=== PATIENT | female | born 1960 | race Caucasian/White ===

== ENCOUNTER 2023-11-04 10:21 | Emergency (ER) | payer OTHER, SELFPAY ==
[2023-11-04 10:46] VITALS: BP 127/72; PULSE 69; RESP 16; TEMP 36.8; O2SAT 99; BMI 19.1
--- NOTE | 2023-11-04 12:51 | ED_ITS ---
HPI - Animal Bite <Greyson RiversMARGOTH aden - Last Filed: 11/04/23 13:22> General Chief Complaint: Animal Bite Stated Complaint: bat bite Time Seen by Provider: 11/04/23 12:41 Source: patient Mode of arrival: Family Vehicle History of Present Illness HPI narrative: 63-year-old female, [place], presents to the emergency department with suspected bat bite to her left ankle. Patient has been staying on Tuesday [facility]. Patient endorses that she heard wing flapping in the dark bedroom over last 3 nights. Last night, she felt a stinging sensation to her left ankle, and when she turned on the lights, noticed that there was a bat flying around in the room. Patient denies any systemic symptoms at this time. Review of Systems <MARGOTH Huang - Last Filed: 11/04/23 13:22> Review of Systems Narrative: Narrative: See HPI. GENERAL: Denies chills, fatigue, fever, sweats. HEENT: Denies sinus pain, ear pain, sore throat, difficulty swallowing, dizziness. RESPIRATORY: Denies dyspnea, cough, wheezing, sputum. CARDIOVASCULAR: Denies chest pain, palpitations, edema. GASTROINTESTINAL: Denies nausea, vomiting, abdominal pain, diarrhea, constipation. : Denies dysuria, frequency, incontinence, hematuria, urinary retention, flank pain. MSK: Denies weakness, joint pain, or bony pain. SKIN: Denies rash, skin lesions, or pruritis. Endorses suspected bat bite to left ankle. NEUROLOGIC: Denies weakness, dizziness, headache, numbness, confusion. PSYCHIATRIC: No concerning psychosocial issues. Exam <MARGOTH Huang - Last Filed: 11/04/23 13:22> Narrative Exam Narrative: Exam Narrative: GENERAL: This is a well-nourished, well-developed patient, in no acute distress. HEAD: Atraumatic. Normocephalic. EYES: Pupils equal round and reactive. . No scleral icterus, injection or drainage. ENT: Nose without bleeding, purulent drainage. Throat without erythema, tonsillar hypertrophy or exudate. Uvula midline. Airway patent. TMs and canals clear. No sinus tenderness. NECK: Trachea midline. No JVD or lymphadenopathy. Nontender. CARDIOVASCULAR: Regular rate and rhythm without murmurs, peripheral pulses intact, cap refill <2 sec. RESPIRATORY: Breath sounds equal and clear bilaterally. No wheezes, rales, or rhonchi. No cough. No increased respiratory effort. No accessory muscle use. MSK: Moves all extremities. Normal range of motion, no clubbing or edema. Neurovascularly intact. NEURO: A&O x 3. SKIN: Warm, dry, no rashes or lesions noted. Suspected bat bite to left ankle with to richter approximately 0.3 cm apart. No redness, warmth, swelling, drainage or red streaking noted. Initial Vital Signs Initial Vital Signs: Vital Signs Temperature 98.3 F 11/04/23 10:46 Pulse Rate 69 11/04/23 10:46 Respiratory Rate 16 11/04/23 10:46 Blood Pressure 127/72 11/04/23 10:46 Pulse Oximetry 99 11/04/23 10:46 Oxygen Delivery Method Room Air 11/04/23 10:46 Review <Susan George DO - Last Filed: 11/13/23 07:47> Initial Vital Signs Initial Vital Signs: Vital Signs Temperature 98.3 F 11/04/23 10:46 Pulse Rate 69 11/04/23 10:46 Respiratory Rate 16 11/04/23 10:46 Blood Pressure 127/72 11/04/23 10:46 Pulse Oximetry 99 11/04/23 10:46 Oxygen Delivery Method Room Air 11/04/23 10:46 Course <MARGOTH Huang - Last Filed: 11/04/23 13:22> Orders Ordered: Discontinued Medications Rabies Immune Globulin (Rabies Immune Globulin 300 Unit/Ml 1ml Vial) 998 unit 20 unit/kg (998 unit) IM NOW ONE Stop: 11/04/23 12:51 Last Admin: 11/04/23 14:10 Dose: Not Given Documented By: ROSEMARIE Rabies Immune Globulin (Rabies Immune Globulin 300 Unit/Ml 1ml Vial) 900 unit 20 unit/kg (998 unit) IM NOW ONE Stop: 11/04/23 14:16 Last Admin: 11/04/23 14:11 Dose: 900 unit Documented By: ROSEMARIE Rabies Vaccine (Rabies Vaccine (Rabavert) 2.5 Units Syringe) 2.5 units IM .ONCE ONE Stop: 11/04/23 12:51 Last Admin: 11/04/23 13:20 Dose: 2.5 units Documented By: ROSEMARIE Vital Signs Vital signs: Vital Signs - 8 hr 11/04/23 10:46 Temperature 98.3 F Pulse Rate 69 Respiratory Rate 16 Blood Pressure 127/72 Pulse Oximetry 99 Oxygen Delivery Method Room Air <Ssuan George DO - Last Filed: 11/13/23 07:47> Orders Ordered: Discontinued Medications Rabies Immune Globulin (Rabies Immune Globulin 300 Unit/Ml 1ml Vial) 998 unit 20 unit/kg (998 unit) IM NOW ONE Stop: 11/04/23 12:51 Last Admin: 11/04/23 14:10 Dose: Not Given Documented By: ROSEMARIE Rabies Immune Globulin (Rabies Immune Globulin 300 Unit/Ml 1ml Vial) 900 unit 20 unit/kg (998 unit) IM NOW ONE Stop: 11/04/23 14:16 Last Admin: 11/04/23 14:11 Dose: 900 unit Documented By: ROSEMARIE Rabies Vaccine (Rabies Vaccine (Rabavert) 2.5 Units Syringe) 2.5 units IM .ONCE ONE Stop: 11/04/23 12:51 Last Admin: 11/04/23 13:20 Dose: 2.5 units Documented By: ROSEMARIE Vital Signs Vital signs: Vital Signs - 8 hr 11/04/23 10:46 Temperature 98.3 F Pulse Rate 69 Respiratory Rate 16 Blood Pressure 127/72 Pulse Oximetry 99 Oxygen Delivery Method Room Air MDM - Animal Bite <MARGOTH Huang - Last Filed: 11/04/23 13:22> Differential Diagnosis Differential diagnosis: Likely bite by animal and rabies contact MDM Narrative Medical decision making narrative: 63-year-old female with suspected bat bite. Assessment was encouraging but history is consistent with suspected bat bite and exposure to rabies. Will begin treatment with RIG and day 1 rabies vaccine. RIG 900 IU infiltrated around suspected wound. Will instruct patient to return to the emergency department or follow up with her family doctor in [place] for rabies vaccination on Days 3, 7 and between days 14 and 28. Discussed plan of care and return precautions with patient, who verbalized understanding and was agreeable with course of action. Discharge Plan Departure Patient Disposition: Home Clinical Impression: Bite by animal, Rabies contact Instructions: DI for Animal Bites Activity Restrictions/Additional Instructions: *You have been diagnosed with a suspected bat bite to your ankle. We have administered rabies immune globulin to the affected site and 1st dose of rabies vaccine (Day 0). You need to return to the emergency department or your family doctor for rabies vaccination on Days 3, 7 and between days 14 and 28. For any worsening symptoms, please feel free to return to the emergency department immediately. *What to do: *Please continue to take your regular medications as directed. [ ] New medication prescriptions sent to your pharmacy: [ ] [ ] New medication written as a paper prescription [x ] No new medications given *Please follow up with your primary care provider in 2-3 days, call for an appointment. Let them know you were seen in the Emergency Department and that we ask that you be seen in follow up. We will electronically transmit a record of today's note if your PCP is in our system *If you do not have a primary care provider please contact the [facility] Resource line at [phone]. They will ask some questions about your medical history and help get you set up with a doctor in the community. ? Return to ER if you should have any new, worsening or concerning symptoms, such as worsening pain, severe headache, confusion, chest pain, difficulty breathing, fever greater than 101 F, shaking chills, persistent vomiting to the point that you cannot drink fluids, or other new or worsening symptoms. Stand Alone Forms: Patient Portal/API ED Sign-out <Susan George DO - Last Filed: 11/13/23 07:47> Cosign ED Attending Keyanna Attestation: I was available for consultation.
[2023-11-04] MEDS: RABIES VACCINE (RABAVERT) 2.5 UNITS SYRINGE IM (13:20)
[2023-11-04 13:50] VITALS: BP 131/89; PULSE 69; RESP 16; O2SAT 99
[2023-11-04] MEDS: RABIES IMMUNE GLOBULIN 300 UNIT/ML 1mL VIAL 900 UNIT IM (14:11)
== END 2023-11-04 13:50 | disposition home or self-care (01) ==
PROVIDERS: Emergency Provider Registered Nurse
DX: S91.052A Open bite, left ankle, initial encounter (principal); Z20.3 Contact with and (suspected) exposure to rabies; Z23 Encounter for immunization
CPT/HCPCS: 90375; 90471; 90675; 96372; 99283